=== PATIENT | female | born 1975 | race Two or more races ===

== ENCOUNTER 2024-11-17 20:14 | Emergency (ER) | payer MEDICAID, SELFPAY ==
[2024-11-17 20:14] VITALS: BMI 26.2
[2024-11-17 20:29] VITALS: BP 158/92; PULSE 103; RESP 20; TEMP 36.9; O2SAT 98
--- NOTE | 2024-11-17 20:34 | XR_ITS ---
Examination: CT brain head without contrast. 2-D sagittal coronal reconstructions Date and time of exam:November 17, 2024 2134 hrs. Indications: Patient fell yesterday with injury to the head, nosebleed head pain CTDI: vol (mGy):48.6 DLP: (mGycm):920 Technique: Multiple CT axial sections of the brain have been obtained, 5 mm slice thickness. Contrast has not been administered. 2-D sagittal, coronal reconstructions have been obtained Low dose protocols were performed. One or more of the following dose reduction techniques were used; automated exposure control, adjustment of the mA and/or KV according to patient size, use of iterative reconstruction technique. Findings: No significant ventricular enlargement. Intra-axial or extra-axial hemorrhage density is not seen. No mass effect or midline shift Basal cisterns are not remarkable. Fourth ventricle is midline. Cranial vault intact. Impression: Negative for acute hemorrhage, mass effect or midline shift
--- NOTE | 2024-11-17 20:35 | PD.EDRME ---
Rapid Medical Screening Exam RME Arrival date/time: 11/17/24 20:14 49-year-old female reports with complaints of a head injury 2 days ago and now persistent nosebleeding Chief Complaint: Epistaxis/Nasal Foreign Body Time Seen by Provider: 11/17/24 20:26 Vital signs: Vital Signs Temperature 98.4 F 11/17/24 20:29 Pulse Rate 103 H 11/17/24 20:29 Respiratory Rate 20 11/17/24 20:29 Blood Pressure 158/92 H 11/17/24 20:29 Pulse Oximetry (%) 98 11/17/24 20:29 Oxygen Delivery Method Room Air 11/17/24 20:29 RME Narrative: 23:55 patient is a 49-year-old female who presented the emergency department with epistaxis. Patient states that 2 days ago she was cleaning an RV and when she struck the top of her head. Today she developed right sided epistaxis. When patient arrived in the emergency department she was blowing her nose and was not holding direct pressure. Even after being instructed to do so she refused. Patient was seen by SHAHLA Cruz who placed bilateral nasal packing. When I saw the patient she was awake and alert with nasal packing and no active bleeding. No further medical complaints On exam she has deep packing in both naris, these were only maybe 3 cm in each nare. I promptly remove those and patient has no active bleeding. I have instructed her to stop blowing her nose the rest were just going to discharge her with active nosebleed and she promised not to blow her nose anymore. Will observe for the time and reevaluate 00:48 no active bleeding. Will discharge patient with instructions to follow-up with her primary care doctor within the next several days.
[2024-11-17] MEDS: OXYMETAZOLINE NAS SPRY 0.05% 15 ML BTL NASAL (20:42)
[2024-11-17 21:58] LABS: Basophils # (Auto) 0.1 Thou/mm3 (0.0-0.2); Basophils % (Auto) 1 % (0-2.5); Eosinophils # (Auto) 0.1 Thou/mm3 (0.0-0.5); Eosinophils % (Auto) 2 % (0-10); Immature Granulocytes % (Auto) 0 % (0-0); Immature Granulocytes Auto 0.02 Thou/mm3 (0.00-0.00); Lymphocytes # (Auto) 1.3 Thou/mm3 (1.0-4.8); Lymphocytes % (Auto) 19 % (10-50); Mean Corpuscular HGB Conc 34.2 g/dl (31.0-37.0); Mean Corpuscular Hemoglobin 30.3 pg (25.0-35.0); Mean Corpuscular Volume 89 fL (80-100); Monocytes # (Auto) 0.6 Thou/mm3 (0.0-0.8); Monocytes % (Auto) 9 % (0-12); Neutrophils # (Auto) 4.7 Thou/mm3 (1.8-7.7); Neutrophils % (Auto) 69 % (37-80); Nucleated Red Blood Cell % 0 /100 WBC (0); Platelet Count 317 Thou/mm3 (140-440); RDW Standard Deviation 48.8 fL (36.4-46.3); Red Blood Count 4.29 Miln/mm3 (4.00-5.20); White Blood Count 6.8 Thou/mm3 (3.6-11.0)
[2024-11-17 22:12] LABS: Partial Thromboplastin Time 28.9 Seconds (22.0-36.0)
[2024-11-17 22:38] LABS: HCG,Qualitative Serum Negative
[2024-11-17 22:57] VITALS: BP 164/100; PULSE 97; RESP 16; TEMP 36.6; O2SAT 99
[2024-11-18 00:54] VITALS: BP 143/92; PULSE 93; RESP 18; O2SAT 100
--- NOTE | 2024-11-18 04:51 | EDNOTE_ITS ---
ED Epistaxis RME/HPI General Chief complaint: Epistaxis/Nasal Foreign Body Stated complaint: NOSEBLEED X 45 MIN Time Seen by Provider: 11/17/24 20:26 Arrival date/time: 11/17/24 20:14 RME / HPI RME / HPI Narrative: DR. MEREDITH CAMERON ED EVALUATION: Patient is a 49-year-old female who presented the emergency department with epistaxis. Patient states that 2 days ago she was cleaning an RV and when she struck the top of her head. Today she developed right sided epistaxis and she thinks these 2 things might be related somehow. When patient arrived in the emergency department she was blowing her nose and was not holding direct pressure. Even after being instructed to do so she would not do it. Patient was seen by SHAHLA Cruz who placed bilateral nasal packing. When I saw the patient she was awake and alert with nasal packing and no active bleeding. No further medical complaints Related Data Home Medications ?Medication ?Instructions ?Recorded ?Confirmed insulin aspar prt-insulin aspart 16 units subcut BID 0 01/30/18 08/14/19 100 unit/mL (70-30) subcutaneous soln (Novolog Mix 70-30 U-100 Insuln) Previous Rx's ?Medication ?Instructions ?Recorded quetiapine 100 mg tablet (Seroquel) 150 mg (1.5 x 100 mg) PO BID 05/18/18 Depression #60 tabs albuterol sulfate 90 mcg/actuation 2 puff inhalation Q 6H PRN 05/20/18 aerosol inhaler (Ventolin HFA) shortness of breath or wheezing #6.7 grams albuterol sulfate 90 mcg/actuation 1 inh inhalation QI D PRN shortness 06/16/20 aerosol inhaler of breath or wheezing #6.7 g isaac fluticasone propionate 50 1 spray intranasal BID #16 g isaac 09/08/22 mcg/actuation nasal spray,suspension (Flonase Allergy Relief) ibuprofen 800 mg tablet 800 mg PO TID PRN pain #30 t abs 02/17/23 ondansetron 4 mg disintegrating 4 mg PO Q8H PRN nausea and 05/16/23 tablet vomiting #14 tabs nirmatrelvir 300 mg (150 mg See Rx Instructions PO .CO MPLEX 08/26/23 x2)-ritonavir 100 mg tablet,dose #30 tabs pack (Paxlovid) Allergies Allergy/AdvReac Type Severity Reaction Status Date / Time codeine Allergy Severe HIVES Verified 11/17/24 20:18 hydrocodone Allergy Severe Anaphylaxis Verified 11/17/24 20:18 hydromorphone Allergy Severe HIVES, Verified 11/17/24 20:18 TONGUE SWELLS tramadol Allergy Severe Rash Verified 11/17/24 20:18 Review of Systems Review of Systems Systems Reviewed: All systems reviewed, normal except as documented Narrative Review of Systems: GEN: No fever, no chills, no weight loss EYES: No discharge, no visual changes, no pain HEENT: No ear pain, no congestion, no sore throat, + right sided epistaxis PULM: No shortness of breath, no cough, no congestion CV: No chest pain, no dyspnea on exertion, no palpitations GI: No nausea, no vomiting, no diarrhea, no pain, no constipation : No frequency, no urgency and no dysuria MUSC/SKEL: No joint pain, no back pain SKIN: No rash PSYCH: No hallucinations, no depression HEME/LYMPH: No easy bleeding or bruising tendencies NEURO: No weakness, no headache Past Medical History Past Medical History CARDIAC: Positive Hypercholesterolemia and Hypertension GASTROINTESTINAL: Positive Gastroesophageal Reflux Disease ENDOCRINE: Positive Endocrine Disorders and Diabetes Mellitus Type 2 PSYCHO/SOCIAL: Positive Psychiatric Problems, Depression, Anxiety, Behavior Problems and Post Traumatic Stress Disorder OTHER HISTORY: Positive Blood Transfusions Family History FAMILY HISTORY: Positive Family Cardiac Disorders Surgical History SURGICAL: Positive Section Social History SMOKING STATUS: Never smoker SUBSTANCE USE: marijuana and methamphetamine ALCOHOL: Never OCCUPATION: Psych history from chart review otherwise unobtainable ED Exam Narrative Physical exam: GENERAL APPEARANCE:? alert and oriented x 4, well-developed, well-nourished, no acute distress HEENT: Normocephalic, atraumatic; pupils equal, round, reactive to light; EOMI. She has 4.5 cm rapid Rhino's bilaterally but each are only about 2 to 3 cm inside the naris bilaterally. I promptly remove those and patient has no active bleeding. I have instructed her to stop blowing her nose. NECK: Supple LUNGS: CTABL; no wheezes, no rales, no rhonchi HEART: Regular rate, regular rhythm; normal S1, S2; no murmurs ABDOMEN: non distended; normal BS;? soft, no tenderness, no guarding, no rebound; no masses, no organomegaly, no hernia?? BACK:? no CVA tenderness EXTREMITIES:? atraumatic; no edema NEUROLOGIC: awake; alert and oriented x4; cranial nerves II-XII grossly intact; no focal sensory or motor deficits PSYCHIATRIC:? appropriate mood and affect SKIN: warm, dry, normal color; no rashes Course Quality Measures none Orders Category Date Time Status Nasal Packing X1 Care 11/17/24 20:[address] head/brain wo con Stat Exams 11/17/24 20:34 Completed CBC Stat Lab 11/17/24 21:50 Completed HCG,Qualitative Serum Stat Lab 11/17/24 21:50 Completed PT [Prothrombin Time with INR] Stat Lab 11/17/24 21:50 Completed PTT [Partial Thromboplastin Time] Stat Lab 11/17/24 21:50 Completed Oxymetazoline Bijan Rushford 0.05% [Afrin Nasal Goode] Med 11/17/24 20:34 Discontinued See Dose Instructions NASAL X1 ONE Reevaluation(s) Reevaluation #1: No active bleeding. Will discharge patient with instructions to follow-up with her primary care doctor within the next several days. Time: 00:48 Vital Signs Vital signs: Vital Signs Temperature 98.4 F 11/17/24 20:29 Pulse Rate 103 H 11/17/24 20:29 Respiratory Rate 20 11/17/24 20:29 Blood Pressure 158/92 H 11/17/24 20:29 Pulse Oximetry (%) 98 11/17/24 20:29 Oxygen Delivery Method Room Air 11/17/24 20:29 Epistaxis MDM Narrative MDM Narrative:: Patient is completely stable in no acute distress. She has 4.5 cm rapid Rhino's bilaterally but each are only about 2 to 3 cm inside the naris bilaterally. I promptly remove those and patient has no active bleeding. I have instructed her to stop blowing her nose. I let her know that if she continues blowing her nose this will cause her nose to keep bleeding. I let her know that she probably does not need the packing and that she probably does not need any further treatment at all but if she keeps blowing her nose it will keep bleeding. I let her know that we cannot keep her in the emergency department any longer just because she is refusing to stop blowing her nose. Patient eventually agreed to stop blowing in the nose. Will observe and will reevaluate 00:48 no active bleeding. Will discharge patient with instructions to follow-up with her primary care doctor within the next several days. Patient data External records reviewed:: [facility] previous records (Reviewed last ED visit dated 01/29/24 discharged with the following: Acute alteration in mental status) Clinical information provided by:: patient Social determinants that could affect healthcare access:: substance use (marijuana and methamphetamine) Patient has the following chronic illnesses:: Hypertension, hypercholesterolemia, Diabetes Mellitus Type 2, GERD, anxiety. Section. How is presenting disease/condition affected by chronic disease/condition?: exacerbated by Evaluation data The following diagnostics were reviewed and interpreted by me:: lab results and radiology exam(s) Lab and/or radiology exams considered but not ordered:: none Interpretation Summary: Procedure(s): CT head/brain wo con Accession Number(s): [id number] cc: Kg Emmanuel MD; Jacinto Cruz PA-C~ Examination: CT brain head without contrast. 2-D sagittal coronal reconstructions Date and time of exam:November 17, 2024 2134 hrs. Indications: Patient fell yesterday with injury to the head, nosebleed head pain CTDI: vol (mGy):48.6 DLP: (mGycm):920 Technique: Multiple CT axial sections of the brain have been obtained, 5 mm slice thickness. Contrast has not been administered. 2-D sagittal, coronal reconstructions have been obtained Low dose protocols were performed. One or more of the following dose reduction techniques were used; automated exposure control, adjustment of the mA and/or KV according to patient size, use of iterative reconstruction technique. Findings: No significant ventricular enlargement. Intra-axial or extra-axial hemorrhage density is not seen. No mass effect or midline shift Basal cisterns are not remarkable. Fourth ventricle is midline. Cranial vault intact. Impression: Negative for acute hemorrhage, mass effect or midline shift Dictated By: Kg Emmanuel MD Medications / Prescriptions Medications or Prescriptions considered but not ordered:: none Medication administrations:: Medication Administration History Discontinued Medications Oxymetazoline HCl (Oxymetazoline Bijan Rushford 0.05% 15 Ml Btl) 0 spray NASAL X1 ONE Stop: 11/17/24 20:35 Last Admin: 11/17/24 20:42 Dose: 2 spray Documented By: MIGUEL ANGEL see above Consultations Consultation(s) initiated? (list below): No Diagnosis Epistaxis Differential Diagnosis: nasal bone fracture, anterior epistaxis and posterior epistaxis Most likely diagnosis given after review of the tests above:: Epistaxis Admission Indicated Admission indicated?: not indicated Admission Request Was there a request for admission?: No Disposition Plan Disposition Plan: Discharge Discharge Attestation Discharge Attestation: The patient and all family members were given an opportunity to ask questions and understood the discharge instructions. Discharge instructions specifically effects, indications for sooner follow up or return to the emergency department, and the expected course of current diagnosis. Patient condition: Stable Discharge Plan Plan Patient Disposition: HOME (Self Care) Disposition Comment: Stable for discharge Patient condition on transfer: Stable Prescriptions/Referrals Prescriptions/Med Rec: No Action Novolog Mix 70-30 U-100 Insuln 100 unit/mL (70-30) Solution 16 units Sub-Q BID albuterol sulfate [Ventolin HFA] 90 mcg/actuation HFA aerosol inhaler 2 puff INH Q6H PRN (Reason: shortness of breath or wheezing) Qty: 6.7 0RF quetiapine [Seroquel] 100 MG tablet 150 mg PO BID Qty: 60 0RF albuterol sulfate 90 mcg/actuation HFA aerosol inhaler 1 inh IH QID PRN (Reason: shortness of breath or wheezing) Qty: 6.7 0RF ondansetron 4 mg tablet,disintegrating 4 mg PO Q8H PRN (Reason: nausea and vomiting) Qty: 14 0RF fluticasone propionate [Flonase Allergy Relief] 50 mcg/actuation spray,suspension 1 spray intranasal BID Qty: 16 0RF Rx Instructions: administer into each nostril ibuprofen 800 mg tablet 800 mg PO TID PRN (Reason: pain) Qty: 30 0RF Paxlovid 300 mg (150 mg x 2)-100 mg tablets,dose pack See Rx Instructions .ROUTE .COMPLEX Qty: 30 0RF Rx Instructions: take TWO 150 mg tablets of nirmatrelvir with ONE 100 mg tablet of ritonavir twice daily for 5 days Referrals: Willow Nelson MD [Primary Care Provider] - In 1 week Problem List Clinical Impression: Epistaxis Patient/Caregiver Discharge Instructions Discharge Activity: activity as tolerated Education Materials: Nosebleed, ED Epistaxis (Adult) Additional Instructions: Please return to the emergency department for any worsening or any further medical problems. Otherwise you should follow-up with your primary care doctor within the next several days Print Language: Gabonese Stand Alone Forms: Vicki Award Info., Patient Portal Info Letter
== END 2024-11-18 00:55 | disposition home or self-care (01) ==
PROVIDERS: Physician Assistant; Emergency Provider Emergency Medicine; PCP Internal Medicine Infectious Disease
DX: R04.0 Epistaxis (principal)
CPT/HCPCS: 30901; 36415; 70450; 84703; 85025; 85610; 85730; 99284; A9270

== ENCOUNTER 2025-07-07 12:27 | Emergency (ER) | payer MEDICAID, SELFPAY ==
[2025-07-07 12:29] VITALS: BP 149/90; PULSE 98; RESP 18; TEMP 36.6; O2SAT 97
[2025-07-07 12:35] VITALS: PULSE 104; RESP 18; O2SAT 99
--- NOTE | 2025-07-07 13:45 | PC.NURSE ---
called for pt from lobby/outside, no answerx1@ [id number]
--- NOTE | 2025-07-07 14:02 | PC.NURSE ---
NO RESPONSE X2 @ [id number] PT CALLED BACK TO BE SEEN BY PROVIDER. NO RESPONSE FROM LOBBY OR OUTSIDE.
--- NOTE | 2025-07-07 14:27 | PC.NURSE ---
PT CALLED BACK TO BE SEEN BY PROVIDER. NO RESPONSE X3 @[id number] FROM LOBBY OR OUTSIDE.
== END 2025-07-07 14:35 | disposition left against medical advice (07) ==
PROVIDERS: Emergency Provider Emergency Medicine
DX: Z53.21 Procedure and treatment not carried out due to patient leaving prior to being seen by health care provider (principal)
CPT/HCPCS: 99281